=== PATIENT | female | born 1995 | race Caucasian/White ===

== ENCOUNTER → 2021-02-12 13:00 | Outpatient (BNVA) | payer SELFPAY | PROVIDERS: Visit Provider Internal Medicine | DX: Z02.79 Encounter for issue of other medical certificate (principal) ==

== ENCOUNTER 2021-02-18 12:29 | Outpatient (REF) | payer MEDICAID, SELFPAY ==
[2021-02-18 13:50] LABS: COVID-19 Test Negative (Negative)
== END 2021-02-18 12:30 | disposition home or self-care (01) ==
LOC: HO.LAB 12:29
PROVIDERS: Visit Provider Internal Medicine
DX: Z20.822 Contact with and (suspected) exposure to COVID-19 (principal)
CPT/HCPCS: 36415; 87635; C9803